=== PATIENT | male | born 1935 | race Caucasian/White ===

== ENCOUNTER → 2016-06-06 | Outpatient (CLI) | payer MEDICARE, BC ==
[~2016-06-06] MED LIST: HYDR12.53 PO; MULT1TAB59 PO; OMEG100016 PO; TAMS-14 PO; VIC PO; [UNRECOGNIZED DRUG - OTHER] PO
== END | disposition home or self-care (01) ==
LOC: HKI 08:39
PROVIDERS: ATTEND Orthopaedic Surgery
DX: M17.12 Unilateral primary osteoarthritis, left knee (principal); M25.562 Pain in left knee; S82.032 Displaced transverse fracture of left patella
CPT/HCPCS: G0463